=== PATIENT | male | born 1995 | race Caucasian/White ===

== ENCOUNTER 2017-10-06 16:59 | Emergency (ER) | payer OTHER ==
[~2017-10-06] VITALS: Ht 180.3 cm; Wt 70.5 kg
[2017-10-06 17:06] VITALS: BP 125/68; PULSE 97; TEMP 97.9
== END 2017-10-06 19:48 | disposition home or self-care (01) ==
LOC: COL.ER 16:59
DX: S63.502A Unspecified sprain of left wrist, initial encounter (principal); W18.39XA Other fall on same level, initial encounter; Y93.67 Activity, basketball

== ENCOUNTER 2019-07-23 22:31 | Emergency (ER) | payer OTHER ==
[~2019-07-23] VITALS: Ht 177.8 cm; Wt 71.8 kg
[2019-07-23 22:34] VITALS: TEMP 97.9
[2019-07-23 23:21] LABS: BASO # 0.1 (0.0-0.2); BASO % 0.7 % (0.0-2.0); EOS # 0.3 (0.0-0.7); EOS % 3.3 % (0-4.0); GRAN # 5.6 (1.4-6.5); GRAN % 53.6 % (42.2-75.2); HEMATOCRIT 45.1 % (42.0-52.0); HEMOGLOBIN 15.7 g/dl (13.5-18.0); LYMPH # 3.2 (1.2-3.4); MEAN CELL VOLUME 91 fl (80.0-100.0); MEAN CORPUSCULAR HEMOGLOBIN 32 pg (27.0-31.0); MEAN CORPUSCULAR HGB CONC 35 g/dl (33.0-37.0); MEAN PLATELET VOLUME 9.3 fl (7.4-10.4); MONO # 1.2 (0.1-0.6); MONO % 11.1 % (1.7-9.3); PLATELET COUNT 280 K/mm3 (130-400); RED BLOOD COUNT 4.96 M/mm3 (4.20-5.60); REDCELL DISTRIBUTION WIDTH-CV 12.4 % (11.5-14.5)
[2019-07-23 23:32] LABS: ALANINE AMINOTRANSFERASE 21 U/L (21-72); ALBUMIN 4.6 gm/dL (3.5-5.0); ALKALINE PHOSPHATASE 74 U/L (50-136); ANION GAP 9 mmol/L (7-16); AST,SGOT 39 U/L (15-37); BILIRUBIN,TOTAL 0.5 mg/dL (0.0-1.0); BLOOD UREA NITROGEN 18 mg/dL (9-20); CALCIUM 9.9 mg/dL (8.4-10.2); CARBON DIOXIDE 28 mmol/L (22-30); CHLORIDE 104 mmol/L (98-107); CREATININE, serum 1.32 (0.66-1.25); GLUCOSE 74 mg/dL (74-106); POTASSIUM 3.9 mmol/L (3.4-5.0); SODIUM 141 mmol/L (137-145); TOTAL PROTEIN 7.8 gm/dL (6.4-8.2)
[2019-07-23 23:40] LABS: C-REACTIVE PROTEIN < 0.5 mg/dL (0.0-0.9)
[2019-07-24] MEDS ORDERED: FLAGYL500 MG PO (00:44)
[2019-07-24 01:01] VITALS: BP 109/51; PULSE 78
== END 2019-07-24 01:01 | disposition home or self-care (01) ==
LOC: COL.ER 22:31
PROVIDERS: Nurse Practitioner
DX: R19.7 Diarrhea, unspecified (principal)
CPT/HCPCS: J7030

== ENCOUNTER 2021-11-14 07:37 | Emergency (ER) | payer BC, OTHER ==
[~2021-11-14] VITALS: Ht 180.3 cm; Wt 82.7 kg
[~2021-11-14 07:37] MED LIST: FLAGYL500 MG PO
[2021-11-14 07:44] VITALS: BP 147/78
[2021-11-14] MEDS ORDERED: NORCO 325 MG-51 TAB PO (08:01)
[2021-11-14] MEDS ORDERED: MEDROL 4MG DOSPA4 MG PO (08:01)
[2021-11-14 08:18] VITALS: PULSE 72
== END 2021-11-14 08:18 | disposition home or self-care (01) ==
LOC: COL.ER 07:37
DX: M54.16 Radiculopathy, lumbar region (principal)

== ENCOUNTER → 2022-01-12 | Outpatient (CLI) | payer BC, OTHER ==
[~2022-01-12] MED LIST changes: +MEDROL 4MG DOSPA4 MG PO; +NORCO 325 MG-51 TAB PO
== END ==
LOC: COL.RAD 06:59
DX: E22.1 Hyperprolactinemia (principal)
CPT/HCPCS: A9575

== ENCOUNTER 2024-04-05 23:27 | Emergency (ER) | payer BC ==
[~2024-04-05] VITALS: Ht 177.8 cm; Wt 95.5 kg
[2024-04-05 23:32] VITALS: TEMP 98.3
[2024-04-05] MEDS ORDERED: Ketorolac 30 MG/ML VIAL IV ONE (23:45)
[2024-04-05] MEDS ORDERED: NS 1,000 ML IV ONE (23:45)
[2024-04-06 00:17] LABS: BILIRUBIN,TOTAL 0.4 mg/dL (0.2-1.2); C-REACTIVE PROTEIN 0.24 mg/dL (0.00-0.50); CALCIUM 9.8 mg/dL (8.4-10.2); CREATININE, serum 1.29 mg/dL (0.72-1.25); POTASSIUM 4.1 mEq/L (3.5-4.5); TOTAL PROTEIN 7.2 g/dl (6.2-8.1)
[2024-04-06] MEDS ORDERED: Iohexol 300 - 100 ML VIAL IV ONE (01:03)
[2024-04-06] MEDS ORDERED: NS 50 ML IV SCH (01:03)
[2024-04-06 01:06] LABS: BASO # 0.1 K/mm3 (0.0-0.2); BASO % 0.5 % (0.0-2.0); EOS # 0.3 K/mm3 (0.0-0.7); EOS % 2.6 % (0.0-4.0); GRAN # 4.6 K/mm3 (1.4-6.5); GRAN % 46.8 % (42.2-75.2); HEMATOCRIT 43.1 % (42.0-52.0); HEMOGLOBIN 14.6 g/dl (13.5-18.0); LYMPH % 40.5 % (20.0-51.0); MEAN CELL VOLUME 87 fl (80.0-100.0); MEAN CORPUSCULAR HEMOGLOBIN 30 pg (27-31); MEAN CORPUSCULAR HGB CONC 34 g/dl (33.0-37.0); MONO # 0.9 K/mm3 (0.1-0.6); MONO % 9.3 % (1.7-9.3); PLATELET COUNT 331 K/mm3 (130-400); RED BLOOD COUNT 4.93 M/mm3 (4.20-5.60); REDCELL DISTRIBUTION WIDTH-CV 12.8 % (11.5-14.5)
[2024-04-06 01:39] LABS: URINE APPEARANCE CLEAR (CLEAR/HAZY); URINE BLOOD NEGATIVE (NEGATIVE); URINE COLOR YELLOW (YELLOW); URINE GLUCOSE NEGATIVE (NEGATIVE); URINE KETONE TRACE (NEGATIVE); URINE NITRATE NEGATIVE (NEGATIVE); URINE PROTEIN(semi-quant) NEGATIVE (NEGATIVE); URINE UROBILINOGEN 0.2 E.U/dL (0.2-1.0)
[2024-04-06 01:54] VITALS: BP 114/56; PULSE 70
[2024-04-06 01:56] LABS: COLLECTION METHOD CLEAN CATCH
== END 2024-04-06 01:54 | disposition home or self-care (01) ==
LOC: COL.ER 23:27
PROVIDERS: Nurse Practitioner Primary Care
DX: K52.9 Noninfective gastroenteritis and colitis, unspecified (principal)
CPT/HCPCS: J1885; J7030; Q9967